=== PATIENT | female | born 1950 | race Hispanic/Latino ===

== ENCOUNTER → 2025-07-12 | Outpatient (CLI) | payer MEDICARE ==
--- NOTE | 2025-07-12 12:42 | HMCIMG ---
EXAM: XR Left Foot AP, Oblique and Lateral View. CLINICAL HISTORY: Left foot pain. COMPARISON: None provided. FINDINGS: BONES: No acute fracture or focal osseous lesion. JOINTS: No dislocation. The joint spaces are normal. SOFT TISSUES: The soft tissues are unremarkable. IMPRESSION: 1. No acute osseous abnormality. /[place]
--- NOTE | 2025-07-12 21:51 | HMCIMG ---
X-RAY ABDOMEN AND PELVIS Clinical Data: Lower quadrant abdominal pain. Technique: Standard anteroposterior radiograph of the abdomen and pelvis. Findings: Bowel Gas Pattern: Mottled lucency is noted within the colonic loops, likely representing retained fecal material, possibly due to constipation. No evidence of pneumoperitoneum. Soft Tissues: No abnormal soft tissue mass identified. Bones: Mild diffuse osteopenia is present. Post-Surgical Changes: Metallic clips overlying the right upper abdomen, consistent with post-cholecystectomy status. Pelvis: Multiple pelvic phleboliths are seen.Impression * Post-cholecystectomy state with metallic clips in the right upper abdomen. * Retained fecal material in the colon, likely secondary to constipation; no obstruction or perforation. * Mild diffuse osteopenia. /[place]
== END | disposition home or self-care (01) ==
LOC: RAH 07:24
PROVIDERS: ATTEND Family Medicine
DX: M85.88 Other specified disorders of bone density and structure, other site (principal); I87.8 Other specified disorders of veins; R10.30 Lower abdominal pain, unspecified; M79.672 Pain in left foot; Z90.49 Acquired absence of other specified parts of digestive tract
CPT/HCPCS: 73630; 74018